=== PATIENT | male | born 1995 | race Caucasian/White ===

== ENCOUNTER 2017-11-20 02:59 | Emergency (ER) | payer BC ==
[2017-11-20] MEDS ORDERED: methylPREDNISolone SOD SUCC 125 MG/2 ML VIAL IVP ONE (03:15)
[2017-11-20] MEDS ORDERED: NS 1,000 ML IV ONE (03:15)
[2017-11-20] MEDS ORDERED: RANITIDINE 50 MG/2 ML VIAL IVP ONE (03:15)
--- NOTE | 2017-11-20 03:25 | EDPHY ---
H & P Stated Complaint: allergic reaction Time Seen by Provider: 11/20/17 03:07 HPI/ROS: HPI The patient presents with concern for allergic reaction. About 830 last night he ate seaweed snacks. About 30 min later he began to feel itching and noticed a rash on his chest and back. He went to bed and then he awoke about an hour ago because he had tightness in his chest and felt that it was hard to breathe. He then noticed that he had a rash on his chest and back that had increased. He also says that he felt his uvula was large. He is feeling a bit better now. He has a history of what sounds like urticaria after eating seaweed snacks a few months ago, however nothing quite like this.. REVIEW OF SYSTEMS Constitutional: No fever, no chills. Eyes: No discharge. ENT: No sore throat. Cardiovascular: No chest pain, no palpitations. Respiratory: No cough, positive for shortness of breath. Gastrointestinal: No abdominal pain, no vomiting. Genitourinary: No hematuria. Musculoskeletal: No back pain. Skin: Positive for rashes. Neurological: No headache. PMHx: Healthy Soc Hx: College student PHYSICAL General Appearance: Alert, no distress Eyes: Pupils equal and round no pallor or injection ENT, Mouth: Mucous membranes moist, posterior pharynx is erythematous without edema Respiratory: There are no retractions, lungs are clear to auscultation Cardiovascular: Regular rate and rhythm Gastrointestinal: Abdomen is soft and non-tender, no masses, bowel sounds normal Neurological: A&O, moves all extremities Skin: Warm and dry, there is diffuse urticaria throughout his torso and arms Musculoskeletal: Neck is supple non tender Extremities: symmetrical, full range of motion Psychiatric: Patient is oriented X 3, there is no agitation Source: Patient Exam Limitations: No limitations - Personal History Current Tetanus/Diphtheria Vaccine: Unsure Current Tetanus Diphtheria and Acellular Pertussis (TDAP): Unsure - Medical/Surgical History Hx Asthma: No Hx Chronic Respiratory Disease: No Hx Diabetes: No Hx Cardiac Disease: No Hx Renal Disease: No Hx Cirrhosis: No Hx Alcoholism: No Hx HIV/AIDS: No Hx Splenectomy or Spleen Trauma: No - Social History Smoking Status: Current some day smoker Constitutional: Initial Vital Signs Temperature (C) 36.9 C 11/20/17 03:01 Heart Rate 99 11/20/17 03:01 Respiratory Rate 16 11/20/17 03:01 Blood Pressure 127/86 H 11/20/17 03:01 O2 Sat (%) 94 11/20/17 03:01 O2 Delivery Mode Room Air Allergies/Adverse Reactions: No Known Allergies Allergy (Unverified 11/20/17 03:03) Home Medications: Medication Instructions Recorded EPINEPHrine [Epipen 0.3 MG] 0.3 mg IM ONCE #2 syr 11/20/17 Medical Decision Making Differential Diagnosis: This is a 22-year-old male with no significant past medical history who presents from home with concern for allergic reaction after eating a seaweed snack. He has diffuse urticaria and also reports difficulty breathing with uvular edema. Oxygen saturations are normal, lungs sound clear, posterior pharynx appears normal. In the emergency department, given concern for anaphylaxis with both urticaria and difficulty breathing, the patient was given IM epinephrine in addition to Solu-Medrol, ranitidine, Benadryl. This caused resolution in his symptoms. He was observed for about 2 hr, total of 8 hr from time of exposure. He continued to feel better. He had no further respiratory symptoms. He will be discharged with a prescription for epinephrine pens. I have advised him to continue Benadryl until his symptoms have completely resolved. Critical Care Time: CRITICAL CARE Critical care time spent by me, Dr. Amaral, exclusively with this patient was 15 minutes, exclusive of PA time and exclusive of procedures. The organ system at risk was respiratory and I gave IV fluids and epinephrine to prevent worsening of the patients condition. - Data Points Medications Given: Discontinued Medications Diphenhydramine HCl (Benadryl Injection) 50 mg IVP EDNOW ONE Stop: 11/20/17 03:16 Last Admin: 11/20/17 03:26 Dose: 50 mg Epinephrine HCl (Epinephrine) 0.3 mg IM EDNOW ONE Stop: 11/20/17 03:16 Last Admin: 11/20/17 03:20 Dose: 0.3 mg Sodium Chloride (Ns) 1,000 mls @ 0 mls/hr IV ONCE ONE; Wide Open PRN Reason: Protocol Stop: 11/20/17 03:16 Last Admin: 11/20/17 03:23 Dose: 1,000 mls Methylprednisolone Sodium Succinate (Solu-Medrol) 125 mg IVP EDNOW ONE Stop: 11/20/17 03:16 Last Admin: 11/20/17 03:23 Dose: 125 mg Ranitidine HCl (Zantac) 50 mg IVP EDNOW ONE Stop: 11/20/17 03:16 Last Admin: 11/20/17 03:29 Dose: 50 mg Departure - Departure Disposition: Home, Routine, Self-Care Clinical Impression: Acute anaphylaxis Qualifiers: Encounter type: initial encounter Qualified Code(s): T78.2XXA - Anaphylactic shock, unspecified, initial encounter Condition: Good Instructions: Anaphylaxis (ED) Additional Instructions: I recommend that you take Benadryl 25 mg every 6 hr until your rash improved. You should use the EpiPen in case your symptoms come back or if you have any difficulty breathing or swallowing. Referrals: [facility] [Clinic] - As per Instructions Allergy/Asthma [Provider Group] - As per Instructions Prescriptions: EPINEPHrine [Epipen 0.3 MG] 0.3 mg IM ONCE #2 syr
[2017-11-20 04:45] VITALS: BP 122/72; PULSE 83; RESP 20; TEMP 97.9; O2SAT 96
== END 2017-11-20 04:44 | disposition home or self-care (01) ==
DX: T78.2XXA Anaphylactic shock, unspecified, initial encounter (principal); E86.9 Volume depletion, unspecified; F17.200 Nicotine dependence, unspecified, uncomplicated
CPT/HCPCS: 96374; J0171; J1200; J2780; J2930

== ENCOUNTER 2018-02-20 07:19 | Emergency (ER) | payer BC ==
[2018-02-20] MEDS ORDERED: EPINEPHrine 1 MG/ML INJ IM ONE (07:34)
[2018-02-20] MEDS ORDERED: methylPREDNISolone SOD SUCC 125 MG/2 ML VIAL IVP ONE (07:34)
[2018-02-20] MEDS ORDERED: ALBUTEROL 3 ML DEYVIAL IH ONE (07:34)
[2018-02-20] MEDS ORDERED: NS 1,000 ML IV ONE (07:34)
[2018-02-20] MEDS ORDERED: RANITIDINE 50 MG/2 ML VIAL IVP ONE (07:34)
[2018-02-20] MEDS ORDERED: FAMOTIDINE 20 MG/NACL/50 ML BAG IV ONE (07:41)
[2018-02-20] MEDS ORDERED: EPINEPHrine 1 MG/ML INJ ONE (07:41)
[2018-02-20] MEDS ORDERED: methylPREDNISolone SOD SUCC 125 MG/2 ML VIAL ONE (07:41)
--- NOTE | 2018-02-20 07:42 | EDPHY ---
H & P Time Seen by Provider: 02/20/18 07:27 HPI/ROS: CHIEF COMPLAINT: Allergic reaction HISTORY OF PRESENT ILLNESS: 22-year-old male presents emergency department reporting that 4 o'clock in the morning he had mixed nuts and then went to sleep. He woke at 5 a.m. coughing with a rash. No vomiting. No feeling of his throat closing although he did have a significant cough initially when he woke. Patient took 2 Benadryl. Several weeks ago he was seen in an emergency department for a allergic reaction to seaweed At that time he received epinephrine as well as a referral to [facility]. He has not followed up with an [facility] yet. Patient is concerned that this may be a allergic reaction to peanuts. He does, however, related history of eating peanuts and peanut butter in the past without any difficulties. No fever, chills, chest pain, shortness of breath, palpitations, vomiting, diarrhea, urinary complaints, headache, lightheadedness. REVIEW OF SYSTEMS: Aside from elements discussed in the HPI, a comprehensive 10-point review of systems was reviewed and is negative. PAST MEDICAL HISTORY: Patient denies. SOCIAL HISTORY: No illicit drug use. VITAL SIGNS Reviewed by me. GENERAL: Well-developed, well-nourished, no obvious respiratory distress.. HEENT: Atraumatic. Eyes: Bilateral conjunctival injection. Slight edema of the upper and lower eyelids. No icterus. Mouth: moist mucous membranes. No erythema or lesions. Uvula is erythematous and has angioedema. Neck: supple with no adenopathy. No stridor. LUNGS: Clear to auscultation bilaterally, no wheezes, rhonchi or rales. CARDIAC: Regular rate and rhythm, no rubs, murmurs or gallops. ABDOMEN: Soft, nontender, nondistended, bowel sounds normal. BACK: No CVA tenderness. EXTREMITIES: No trauma. No edema. Range of motion is normal throughout. NEURO: Alert and oriented, grossly nonfocal. SKIN: Warm and dry, diffuse macular rash throughout. PSYCHIATRIC: Normal mentation, no agitation. Smoking Status: Current some day smoker Constitutional: Initial Vital Signs Temperature (C) 36.6 C 02/20/18 07:23 Heart Rate 90 02/20/18 07:23 Respiratory Rate 18 02/20/18 07:23 Blood Pressure 133/84 H 02/20/18 07:23 O2 Sat (%) 93 02/20/18 07:23 O2 Delivery Mode Room Air Allergies/Adverse Reactions: No Known Allergies Allergy (Verified 02/20/18 07:21) Home Medications: Medication Instructions Recorded EPINEPHrine [Epipen 0.3 MG] 0.3 mg IM ONCE #2 syr 11/20/17 predniSONE 40 mg PO DAILY #6 tab 02/20/18 Medical Decision Making ED Course/Re-evaluation: Given epinephrine, albuterol inhaler, solumedrol, pepcid. Had taken benadryl at home. On reexamination, rash improved. No respiratory distress. Will dc after observation with script for prednisone, instructions on epi pen, benadryl, anti-histamines, H2 blockers. Encouraged follow up with [facility]. Differential Diagnosis: Diff dx considered included angioedema, urticaria, allergic reaction, anaphylaxis, bronchospasm. - Data Points Medications Given: Discontinued Medications Albuterol (Proventil Neb) 3 ml IH EDNOW ONE Stop: 02/20/18 07:35 Last Admin: 02/20/18 08:04 Dose: 3 ml Epinephrine HCl (Epinephrine) 0.3 mg IM EDNOW ONE Stop: 02/20/18 07:35 Last Admin: 02/20/18 07:56 Dose: 0.3 mg Sodium Chloride (Ns) 1,000 mls @ 0 mls/hr IV ONCE ONE; Wide Open PRN Reason: Protocol Stop: 02/20/18 07:35 Last Admin: 02/20/18 08:08 Dose: 1,000 mls Famotidine/Sodium Chloride (Pepcid 20 Mg (Premix)) 50 mls @ 200 mls/hr IV EDNOW ONE Stop: 02/20/18 08:11 Last Admin: 02/20/18 08:04 Dose: 50 mls Methylprednisolone Sodium Succinate (Solu-Medrol) 125 mg IVP EDNOW ONE Stop: 02/20/18 07:35 Last Admin: 02/20/18 07:57 Dose: 125 mg Ranitidine HCl (Zantac) 50 mg IVP EDNOW ONE Stop: 02/20/18 07:35 Last Admin: 02/20/18 08:05 Dose: Not Given Departure - Departure Disposition: Home, Routine, Self-Care Clinical Impression: Allergic reaction, Urticaria Condition: Good Instructions: Urticaria (ED), Anaphylaxis (ED), General Allergic Reaction (ED) Additional Instructions: There are 4 medications used to treat allergic reactions. #1. The first is epinephrine. Please use the epinephrine pen in the future as needed if the you develops acute swelling, throat tightness, shortness of breath , or severe rash in the setting of allergic reaction. #2. The second type of medication are antihistamines. The most common antihistamine is diphenhydramine (Benadryl). Dose is 25-50 mg every 6-8 hours as needed for itching and rash. Diphenhydramine can be sedating. Another type of antihistamine is loratadine (Claritin). This is taken once a day. It is not sedating. Repeat doses of antihistamines may be needed as the hives/rash will come and go over the next several days. You may notice that the hives are worse after exposure to heat, warm showers, or exertion. #3. The third medication is Pepcid which is another type of an antihistamine. Dose is 20 mg once a day for 3 days. This should be taken on a regular basis. #4. The fourth medication is prednisone, which is a steroid. The dose is 40 mg a day x3 doses. Please take this as instructed. #5. Return to emergency department or seek care urgently if severe shortness of breath develops, swelling of the lips, eyelids, or sensation that the throat is closing. Please follow up with the [facility] as previously referred. Referrals: NONE *PRIMARY CARE P,. [Primary Care Provider] - As per Instructions Prescriptions: predniSONE 40 mg PO DAILY #6 tab
[2018-02-20] MEDS ORDERED: FAMOTIDINE 20 MG/NACL 50 ML IV ONE (07:57)
[2018-02-20] MEDS ORDERED: ALBUTEROL 3 ML DEYVIAL ONE (08:01)
[2018-02-20 10:02] VITALS: BP 129/76
== END 2018-02-20 10:02 | disposition home or self-care (01) ==
DX: L50.0 Allergic urticaria (principal); E86.9 Volume depletion, unspecified; F17.200 Nicotine dependence, unspecified, uncomplicated
CPT/HCPCS: 96374; J0171; J2930; J7613

== ENCOUNTER 2018-03-01 19:36 | Emergency (ER) | payer BC ==
--- NOTE | 2018-03-01 19:51 | CPEKG ---
Heart Rate: 70 RR Interval: 857 P-R Interval: 128 QRSD Interval: 84 QT Interval: 400 QTC Interval: 432 P [place]: 26 QRS [place]: 42 T Wave [place]: 33 EKG Severity - NORMAL ECG - EKG Impression: SINUS RHYTHM Electronically Signed By: Nicolas Hi 01-Mar-2018 23:19:31
--- NOTE | 2018-03-01 20:08 | EDPHY ---
H & P Stated Complaint: Heart palpatation that radiates into neck and left arm Time Seen by Provider: 03/01/18 19:50 HPI/ROS: CHIEF COMPLAINT: Chest discomfort and palpitations since 24 hr HISTORY OF PRESENT ILLNESS: 22-year-old healthy male complaining of 24 hr of palpitations and chest discomfort described as nonpleuritic, intermittently radiating to his left scapula. Not associated with exertion or activity. No dyspnea. He notes prior history of similar few years ago was diagnosed with ventricular tachycardia at that time. He denies cocaine or illicit drug use. He denies syncope or near-syncope. Denies abdominal pain. Denies URI symptoms. PRIMARY CARE PROVIDER: REVIEW OF SYSTEMS: A ten point review of systems was performed and is negative with the exception of the items mentioned in the HPI PAST MEDICAL & SURGICAL HISTORY: No pertinent medical or surgical history SOCIAL HISTORY:Intermittent tobacco use. No marijuana. No cocaine use. FAMILY HISTORY: No family history of premature coronary artery disease or sudden unexplained . No family history of coagulopathic disorder PHYSICAL EXAM (Prior to examination, patient consented to physical exam, hands were washed and my usual and customary physical exam procedures followed) 1) GENERAL: Well-developed, well-nourished, alert and oriented. Appears to be in no acute distress. 2) HEAD: Normocephalic, atraumatic 3) HEENT: Pupils equal, round, reactive to light bilaterally. Sclera anicteric. Nasopharynx, oropharynx, clear, no lesions. 4) NECK: Full range of motion, no meningeal signs. No carotid bruit 5) LUNGS: Clear auscultation bilaterally, no wheezes, no rhonchi, no retractions. 6) HEART: Regular rate and rhythm, no murmur, no heave, no gallop. 7) ABDOMEN: No guarding, no rebound, no focal tenderness, negative McBurney's, negative Castillo's, negative Rovsing's, negative peritoneal sign, 8) MUSCULOSKELETAL: Moving all extremities, no focal areas of tenderness, no obvious trauma. No peripheral edema or discoloration. Negative Homans no palpable cord 9) BACK: No CVA tenderness, no midline vertebral tenderness, no fluctuance, no step-off, no obvious trauma, no visual or palpable abnormality. 10) SKIN: No rash, no petechiae. 11) Psychiatric: Patient is oriented X 3, there is no agitation. DIFFERENTIAL DIAGNOSIS: In no particular order, including but not limited to myocardial ischemia, pulmonary embolus, chest wall pain, pleural inflammation and pulmonary infectious causes. - Personal History Current Tetanus/Diphtheria Vaccine: Yes Current Tetanus Diphtheria and Acellular Pertussis (TDAP): Yes - Medical/Surgical History Hx Asthma: No Hx Chronic Respiratory Disease: No Hx Diabetes: No Hx Cardiac Disease: Yes Hx Renal Disease: No Hx Cirrhosis: No Hx Alcoholism: No Hx HIV/AIDS: No Hx Splenectomy or Spleen Trauma: No Other PMH: v tach - Social History Smoking Status: Current some day smoker Constitutional: Initial Vital Signs Temperature (C) 36.8 C 03/01/18 19:37 Heart Rate 79 03/01/18 19:37 Respiratory Rate 16 03/01/18 19:37 Blood Pressure 145/89 H 03/01/18 19:37 O2 Sat (%) 96 03/01/18 19:37 O2 Delivery Mode Room Air Allergies/Adverse Reactions: No Known Allergies Allergy (Verified 03/01/18 19:39) Home Medications: Medication Instructions Recorded EPINEPHrine [Epipen 0.3 MG] 0.3 mg IM ONCE #2 syr 11/20/17 Medical Decision Making - Diagnostics Imaging Results: Imaging Impressions Chest X-Ray 03/01/18 20:07 Impression: Chest negative for acute cardiopulmonary abnormality.. Images reviewed myself ED Course/Re-evaluation: Patient was re-evaluated with serial examinations. Reviewed his laboratory and diagnostic results including normal sinus EKG, normal chest x-ray, normal troponin , normal D-dimer which I think adequately excludes pulmonary embolus in this patient whom I have a low to moderate pretest suspicion for pulmonary embolus. Patient has a 0 point heart pathway score/low risk. We discussed this. I think that NM is less than likely. We discussed possible etiologies for symptoms. Plan will be discharge home with close follow-up with Cardiology. He feels comfortable being discharged. All questions and concerns addressed by myself. I saw this patient independently based on established practice protocols. Care of patient under supervision of secondary supervising physician Dr Nicolas Hi with whom I discussed case. - Data Points Laboratory Results: Laboratory Results 03/01/18 20:15 03/01/18 20:15 03/01/18 03/01/18 03/01/18 20:20 20:15 20:15 WBC RBC Hgb Hct MCV MCH MCHC RDW Plt Count MPV Neut % (Auto) Lymph % (Auto) Frontier % (Auto) Eos % (Auto) Baso % (Auto) Nucleat RBC Rel Count Absolute Neuts (auto) Absolute Lymphs (auto) Absolute Monos (auto) Absolute Eos (auto) Absolute Basos (auto) Absolute Nucleated RBC Immature Gran % Immature Gran # D-Dimer < 0.27 ug/mLFEU ug/mLFEU (0.00-0.50) Sodium 138 mEq/L mEq/L (135-145) Potassium 4.1 mEq/L mEq/L (3.3-5.0) Chloride 102 mEq/L mEq/L (97-110) Carbon Dioxide 26 mEq/l mEq/l (22-31) Anion Gap 10 mEq/L mEq/L (8-16) BUN 17 mg/dL mg/dL (7-23) Creatinine 0.9 mg/dL mg/dL (0.7-1.3) Estimated GFR > 60 Glucose 88 mg/dL mg/dL (70-100) Calcium 10.3 mg/dL mg/dL (8.5-10.4) POC Troponin I 0.01 ng/mL ng/mL (0.00-0.08) TSH 1.470 uIU/mL uIU/mL (0.465-4.680) 03/01/18 20:15 WBC 10.35 10^3/uL H 10^3/uL (3.80-9.50) RBC 5.32 10^6/uL 10^6/uL (4.40-6.38) Hgb 16.1 g/dL g/dL (13.7-17.5) Hct 47.5 % % (40.0-51.0) MCV 89.3 fL fL (81.5-99.8) MCH 30.3 pg pg (27.9-34.1) MCHC 33.9 g/dL g/dL (32.4-36.7) RDW 12.0 % % (11.5-15.2) Plt Count 344 10^3/uL 10^3/uL (150-400) MPV 9.2 fL fL (8.7-11.7) Neut % (Auto) 72.0 % % (39.3-74.2) Lymph % (Auto) 19.5 % % (15.0-45.0) Frontier % (Auto) 7.5 % % (4.5-13.0) Eos % (Auto) 0.3 % L % (0.6-7.6) Baso % (Auto) 0.4 % % (0.3-1.7) Nucleat RBC Rel Count 0.0 % % (0.0-0.2) Absolute Neuts (auto) 7.45 10^3/uL H 10^3/uL (1.70-6.50) Absolute Lymphs (auto) 2.02 10^3/uL 10^3/uL (1.00-3.00) Absolute Monos (auto) 0.78 10^3/uL 10^3/uL (0.30-0.80) Absolute Eos (auto) 0.03 10^3/uL 10^3/uL (0.03-0.40) Absolute Basos (auto) 0.04 10^3/uL 10^3/uL (0.02-0.10) Absolute Nucleated RBC 0.00 10^3/uL 10^3/uL (0-0.01) Immature Gran % 0.3 % % (0.0-1.1) Immature Gran # 0.03 10^3/uL 10^3/uL (0.00-0.10) D-Dimer Sodium Potassium Chloride Carbon Dioxide Anion Gap BUN Creatinine Estimated GFR Glucose Calcium POC Troponin I TSH Point of Care Test Results: Chemistry 03/01/18 20:20 POC Troponin I 0.01 ng/mL ng/mL (0.00-0.08) Departure - Departure Disposition: Home, Routine, Self-Care Clinical Impression: Chest pain, Palpitations Condition: Good Instructions: Chest Pain (ED), Heart Palpitations (ED) Additional Instructions: Seek medical attention if you develop new or worsening chest pain, if you develop new or worsening shortness of breath, or any other symptoms that concern you. Referrals: Ellis White MD [Medical Doctor] - 2-3 days, call for appt.
[2018-03-01 20:29] LABS: PLATELET COUNT 344 10^3/uL (150-400)
[2018-03-01 21:46] VITALS: BP 125/74
== END 2018-03-01 21:46 | disposition home or self-care (01) ==
DX: R07.9 Chest pain, unspecified (principal); R00.2 Palpitations; F17.200 Nicotine dependence, unspecified, uncomplicated
CPT/HCPCS: 84484-PO

== ENCOUNTER 2018-03-31 17:57 | Emergency (ER) | payer BC ==
--- NOTE | 2018-03-31 18:05 | CPEKG ---
Heart Rate: 116 RR Interval: 517 P-R Interval: 128 QRSD Interval: 98 QT Interval: 348 QTC Interval: 484 P [place]: 82 QRS [place]: 44 T Wave [place]: 26 EKG Severity - ABNORMAL ECG - EKG Impression: SINUS TACHYCARDIA EKG Impression: LEFT ATRIAL ABNORMALITY EKG Impression: BORDERLINE PROLONGED QT INTERVAL Electronically Signed By: Leonardo Perales 01-Apr-2018 08:44:10
[2018-03-31] MEDS ORDERED: NS 1,000 ML IV ONE (18:54)
[2018-03-31] MEDS ORDERED: ASPIRIN 81 MG CHEWABLE TAB PO ONE (18:54)
[2018-03-31] MEDS ORDERED: LORazepam 2 MG/ML INJ IVP ONE (18:54)
--- NOTE | 2018-03-31 18:58 | EDPHY ---
H & P Time Seen by Provider: 03/31/18 18:27 HPI/ROS: CHIEF COMPLAINT: Heart pressure, tachycardia HISTORY OF PRESENT ILLNESS: The patient is a 22-year-old male presents emergency department with heart pressure and tachycardia. The patient states that his symptoms started 1 hr ago while watching TV. He noticed a sensation of "a thumb pressing on my chest."He also noted that he had a rapid heartbeat. He states that he has had these symptoms before. He reports that he was previously diagnosed with V-tach and was told to follow up with his primary cardiology in [place]. He has also been seen by Dr. Manzanares from [facility]. The patient denies any recent stimulant use. No drug use. The patient did drink heavily last evening. Patient has no leg pain or swelling. No recent travel. REVIEW OF SYSTEMS: My complete review of systems is negative except as mentioned in the HPI. Past Medical/Surgical History: Reported ventricular tachycardia Social history: The patient drinks alcohol last evening. No drug use Family history: The patient's grandmother had a heart attack in her 70s. Smoking Status: Current some day smoker Physical Exam: 36.8, 138/88, 132, 26, 100% on room air GENERAL: Anxious, alert. HEENT: Eyes normal to inspection, normal pharynx, no signs of dehydration. NECK: No thyromegaly, no lymphadenopathy, supple. RESPIRATORY: Clear to auscultation bilaterally, no rales, rhonchi or wheezing. CVS: Tachycardia with regular rhythm, no rubs, murmurs, or gallops. ABDOMEN: Soft, nontender, nondistended, no organomegaly. BACK: Normal to inspection, no CVA tenderness. SKIN: Normal color, no rash, warm, dry. No pallor. EXTREMITIES: No pedal edema, no calf tenderness, no Homans sign or cords, no joint swelling. NEURO/PSYCH: Alert and oriented x3, anxious, normal motor sensory exam. Constitutional: Initial Vital Signs Temperature (C) 36.8 C 03/31/18 18:05 Heart Rate 132 H 03/31/18 18:05 Respiratory Rate 26 H 03/31/18 18:05 Blood Pressure 138/88 H 03/31/18 18:05 O2 Sat (%) 100 03/31/18 18:05 O2 Delivery Mode Nasal Cannula O2 (L/minute) 2 Allergies/Adverse Reactions: tree nut [Nuts] Allergy (Verified 03/31/18 18:11) seaweed Allergy (Uncoded 03/31/18 18:11) Home Medications: Medication Instructions Recorded EPINEPHrine [Epipen 0.3 MG] 0.3 mg IM ONCE #2 syr 11/20/17 Medical Decision Making - Diagnostics Imaging Results: Imaging Impressions Chest X-Ray 03/31/18 18:54 Impression: Possible subtle posterior basilar infiltrate. ED Course/Re-evaluation: In the emergency department I discussed possible etiologies with the patient and mother. I answered all his questions. Due to his symptoms he was placed on oxygen. He is given aspirin 324 mg orally. Because the patient drank last evening any tachycardic he was given 1 L of normal saline. He is given Ativan 1 mg IV for his anxiety. Laboratory studies and EKG were ordered. EKG: Sinus tachycardia 116. Normal axis. Borderline prolonged QT. No ST or T- wave abnormality. On recheck the patient was doing well. He was in normal sinus rhythm. No complaints. CBC and chemistry were unremarkable. Troponin was negative. TSH was normal. D -dimer was negative. I discussed the case with Dr. Martinez from Cardiology. He will access their system for review. I discussed the plan with the patient and his mother. On recheck he was doing well. He had no complaints. He is normal sinus rhythm. Dr. Martinez he reviewed the note from Dr. Manzanares. He states that the patient had a 4 beat run of V-tach. He then had a 5 beat run of V-tach in 2016. At that time was not recommended the av an AICD placed. Dr. Martinez recommend the patient be discharged from the emergency department this evening. He recommended close follow-up with Cardiology. I discussed this with the patient's mother. She will call Cardiology tomorrow morning. I again discussed the case with Dr. Martinez and he will ensure close follow-up. Patient was given warnings prior to leaving. Will return with worsening symptoms. Differential Diagnosis: My differential includes but is not limited to sinus tachycardia, thyroid disease, pulmonary embolus, ACS, stimulant use, dehydration, alcohol use - Data Points Laboratory Results: Laboratory Results 03/31/18 18:10 03/31/18 18:10 03/31/18 03/31/18 03/31/18 18:10 18:10 18:10 WBC 10.56 10^3/uL H 10^3/uL (3.80-9.50) RBC 5.55 10^6/uL 10^6/uL (4.40-6.38) Hgb 16.8 g/dL g/dL (13.7-17.5) Hct 48.2 % % (40.0-51.0) MCV 86.8 fL fL (81.5-99.8) MCH 30.3 pg pg (27.9-34.1) MCHC 34.9 g/dL g/dL (32.4-36.7) RDW 12.0 % % (11.5-15.2) Plt Count 393 10^3/uL 10^3/uL (150-400) MPV 9.5 fL fL (8.7-11.7) Neut % (Auto) 61.5 % % (39.3-74.2) Lymph % (Auto) 28.2 % % (15.0-45.0) [place] % (Auto) 9.2 % % (4.5-13.0) Eos % (Auto) 0.4 % L % (0.6-7.6) Baso % (Auto) 0.4 % % (0.3-1.7) Nucleat RBC Rel Count 0.0 % % (0.0-0.2) Absolute Neuts (auto) 6.50 10^3/uL 10^3/uL (1.70-6.50) Absolute Lymphs (auto) 2.98 10^3/uL 10^3/uL (1.00-3.00) Absolute Monos (auto) 0.97 10^3/uL H 10^3/uL (0.30-0.80) Absolute Eos (auto) 0.04 10^3/uL 10^3/uL (0.03-0.40) Absolute Basos (auto) 0.04 10^3/uL 10^3/uL (0.02-0.10) Absolute Nucleated RBC 0.00 10^3/uL 10^3/uL (0-0.01) Immature Gran % 0.3 % % (0.0-1.1) Immature Gran # 0.03 10^3/uL 10^3/uL (0.00-0.10) D-Dimer < 0.27 ug/mLFEU ug/mLFEU (0.00-0.50) Sodium 141 mEq/L mEq/L (135-145) Potassium 4.6 mEq/L mEq/L (3.3-5.0) Chloride 102 mEq/L mEq/L (97-110) Carbon Dioxide 26 mEq/l mEq/l (22-31) Anion Gap 13 mEq/L mEq/L (8-16) BUN 15 mg/dL mg/dL (7-23) Creatinine 1.1 mg/dL mg/dL (0.7-1.3) Estimated GFR > 60 Glucose 93 mg/dL mg/dL (70-100) Calcium 10.6 mg/dL H mg/dL (8.5-10.4) POC Troponin I TSH 1.520 uIU/mL uIU/mL (0.465-4.680) 03/31/18 18:06 WBC RBC Hgb Hct MCV MCH MCHC RDW Plt Count MPV Neut % (Auto) Lymph % (Auto) [place] % (Auto) Eos % (Auto) Baso % (Auto) Nucleat RBC Rel Count Absolute Neuts (auto) Absolute Lymphs (auto) Absolute Monos (auto) Absolute Eos (auto) Absolute Basos (auto) Absolute Nucleated RBC Immature Gran % Immature Gran # D-Dimer Sodium Potassium Chloride Carbon Dioxide Anion Gap BUN Creatinine Estimated GFR Glucose Calcium POC Troponin I 0.00 ng/mL ng/mL (0.00-0.08) TSH Medications Given: Discontinued Medications Aspirin (Aspirin) 324 mg PO EDNOW ONE Stop: 03/31/18 18:55 Last Admin: 03/31/18 19:13 Dose: 324 mg Sodium Chloride (Ns) 1,000 mls @ 0 mls/hr IV EDNOW ONE; Wide Open PRN Reason: Protocol Stop: 03/31/18 18:55 Last Admin: 03/31/18 19:14 Dose: 1,000 mls Lorazepam (Ativan Injection) 1 mg IVP EDNOW ONE Stop: 03/31/18 18:55 Last Admin: 03/31/18 19:12 Dose: 1 mg Point of Care Test Results: Chemistry 03/31/18 18:06 POC Troponin I 0.00 ng/mL ng/mL (0.00-0.08) Departure - Departure Disposition: Home, Routine, Self-Care Clinical Impression: Tachycardia Condition: Good Instructions: Tachycardia (ED) Additional Instructions: Return with increasing chest pain, shortness of breath, lightheadedness, dizziness or any other concerns. Call tomorrow morning to make an appointment with Dr. Martinez or one of his partners. Referrals: Moody Martinez MD [Medical Doctor] - 1-2 days without fail
[2018-03-31 19:02] LABS: PLATELET COUNT 393 10^3/uL (150-400)
[2018-03-31 21:30] VITALS: BP 110/66
== END 2018-03-31 22:00 | disposition home or self-care (01) ==
DX: R00.0 Tachycardia, unspecified (principal); F17.210 Nicotine dependence, cigarettes, uncomplicated
CPT/HCPCS: 84484-PO; 96374; J2060